=== PATIENT | male | born 1945 | race Caucasian/White ===

== ENCOUNTER 2021-09-19 15:10 | Outpatient (CLI) | payer MEDICARE ==
[2021-09-19 16:08] LABS: Bilirubin Neg (Negative); Blood, Urine Negative (Negative); Clarity Clear (Clear); Glucose, Urine (Dipstick) Normal (Negative); Ketone, Urine 5 mg/dL (Negative); Leukocyte Negative (Negative); Mean Corpuscular HGB CONC 34.1 g/dL (32.0-36.0); Mean Corpuscular Hemoglobin 31.5 pg (27.0-33.0); Mean Corpuscular Volume 92.4 fl (81.2-95.1); Mean Platelet Volume 9.7 fl (7.4-10.4); Nitrite Negative (Negative); Platelet Count 399 10x3/uL (150-450); Protein, Urine (Dipstick) 15 mg/dl (Neg-Trace); RBC Distribution Width 12.7 % (11.5-14.5); Red Blood Cell (RBC) Count 4.45 10x6/uL (4.32-5.72); Urobilinogen Normal mg/dL (Less than 2); White Blood Cell (WBC) Count 8.7 10x3/uL (3.5-10.5)
[2021-09-19 16:25] LABS: Bacteria/HPF None Seen HPF (None Seen); RBC/HPF None Seen HPF (0-3); Squamous Epithelial 0-3 HPF (0-3); WBC/HPF None Seen HPF (0-3)
[2021-09-19 16:26] LABS: Mucous/LPF Rare LPF (<2+)
[2021-09-19 16:27] LABS: Anion Gap 16 mmol/L (10-20); BUN (Urea Nitrogen) 11 mg/dL (8.4-25.7); Calc. Creatinine Clearance 0 mL/min (70-130); Calcium 9.7 mg/dL (7.8-10.44); Carbon Dioxide 28 mmol/L (23-31); Chloride 104 mmol/L (98-107); Glucose 106 mg/dL (83-110); Potassium 4.8 mmol/L (3.5-5.1); Sodium 143 mmol/L (136-145)
== END 2021-09-19 15:11 | disposition home or self-care (01) ==
LOC: LABBT 15:10
PROVIDERS: ATTEND Urology
DX: Z01.818 Encounter for other preprocedural examination (principal); N43.3 Hydrocele, unspecified; Z20.822 Contact with and (suspected) exposure to COVID-19
CPT/HCPCS: 80048; 81001; 85027; 87086; 93005; U0003; U0005; 93010

== ENCOUNTER 2021-09-21 09:57 | Day surgery (SDC) | payer MEDICARE ==
[2021-09-20 10:49] VITALS: BMI 26.1
[2021-09-21] MEDS ORDERED: fentaNYL Citrate/PF 100 MCG/2 ML SYRINGE ONE (11:48)
[2021-09-21] MEDS ORDERED: Sodium Chloride 0.9% 100 ML ONE (12:36)
[2021-09-21] MEDS ORDERED: CEFAZOLIN 2 GM VIAL ONE (12:36)
[2021-09-21] MEDS ORDERED: Ondansetron PF 4 MG/2 ML Vial ONE (12:42)
[2021-09-21] MEDS ORDERED: PROPOFOL 200 MG/20 ML VIAL ONE (12:42)
[2021-09-21] MEDS ORDERED: Lidocaine 1% PF 5 ML VIAL ONE (12:42)
[2021-09-21] MEDS ORDERED: Dexamethasone 20 MG/5 ML VIAL ONE (12:42)
[2021-09-21] MEDS ORDERED: Bacitracin Zinc Ointment 30 gm TUBE ONE (12:54)
[2021-09-21] MEDS ORDERED: Bupivacaine 0.25% HCL 30 ML VIAL ONE (12:54)
[2021-09-21] MEDS ORDERED: Fentanyl 100 MCG/2 ML VIAL ONE (14:02)
[2021-09-21] MEDS ORDERED: hydrALAZINE 20 MG/ML VIAL ONE (14:16)
== END 2021-09-21 15:48 | disposition home or self-care (01) ==
LOC: SDC 09:57
PROVIDERS: ATTEND Urology
PROC: 0VB70ZZ Excision of Left Tunica Vaginalis, Open Approach (ICD-10-PCS; principal; 2021-09-21)
DX: N43.3 Hydrocele, unspecified (principal); N40.0 Benign prostatic hyperplasia without lower urinary tract symptoms
CPT/HCPCS: 88302; J0360; J0690; J1100; J2405; J2704; J3010; J3490; S0020